=== PATIENT | female | born 1945 | race Caucasian/White ===

== ENCOUNTER → 2017-01-19 | Outpatient (CLI) | payer OTHER ==
[2017-01-19 12:15] LABS: BASO % 0.9 %; BASO ABS # 0.08 K/uL (0-0.2); COMPLETE YES; EOS % 2.5 %; HEMATOCRIT 39.6 % (37-47); IG% 0.2 %; LYMPH % 34.4 %; LYMPH ABS # 2.91 K/uL (1.2-3.4); MEAN CELL VOLUME 87.6 fL (80-100); MEAN CORPUSCULAR HGB CONC 35.4 g/dl (32-36); MEAN PLATELET VOLUME 9.9 fL (7.4-10.4); MONO % 6.9 %; NEUT % 55.1 %; PLATELET COUNT 376 K/uL (130-400); RED BLOOD COUNT 4.52 M/uL (4.2-5.4); WHITE BLOOD COUNT 8.45 K/uL (4.8-10.8)
[2017-01-19 12:40] LABS: ALT/SGPT 27 U/L (12-78); BLOOD UREA NITROGEN 9 mg/dl (7-18); BUN/CREATININE RATIO 11.1 (10-20); CALCIUM 9.6 mg/dl (8.5-10.1); CARBON DIOXIDE 25 mmol/L (21-32); CHLORIDE 99 mmol/L (98-107); CHOLESTEROL 263 mg/dl (0-200); CREATININE 0.81 mg/dl (0.60-1.20); GLUCOSE 90 mg/dl (70-99); POTASSIUM 3.9 mmol/L (3.5-5.1); SODIUM 134 mmol/L (136-145); TRIGLYCERIDES 184 mg/dl (0-150); VERY LOW DENSITY LIPOPROT CALC 37 mg/dl
[2017-01-19 12:43] LABS: ALB/GLOB RATIO 1.1 (0.9-2); ALKALINE PHOSPHATASE 51 U/L (45-117); AST/SGOT 25 U/L (15-37); CHOLESTEROL/HDL RATIO 3.2; HDL CHOLESTEROL 83 mg/dl; LDL CHOLESTEROL CALCULATED 143 mg/dl
== END | disposition home or self-care (01) ==
LOC: C.LABPVFM 08:21
PROVIDERS: ATTEND Family Medicine
DX: R19.7 Diarrhea, unspecified (principal); E78.5 Hyperlipidemia, unspecified

== ENCOUNTER → 2017-03-29 | Outpatient (CLI) | payer OTHER ==
--- NOTE | 2017-03-29 13:34 | DIAGNOSTIC IMAGING REPORT ---
R HIP UNILATERAL 2 VIEWS HISTORY: 72 years-old Female Hip strain, initial encounterright acute right hip pain COMPARISON: None available TECHNIQUE: 2 views of right hip FINDINGS: There is moderate right hip osteoarthritis. Imaged right pelvic ring appears intact. No acute fracture or dislocation identified. Vascular calcifications are seen. Calcifications right hemipelvis measuring up to 2.1 cm suggests calcified fibroid. IMPRESSION: Moderate right hip osteoarthritis without acute fracture or dislocation. The above report was generated using voice recognition software. It may contain grammatical, syntax or spelling errors. Electronically signed by: Daniel Sinclair M.D. 03/29/2017 1:33 PM Dictated Date/Time: 03/29/2017 1:30 PM
== END | disposition home or self-care (01) ==
LOC: C.RADPV 12:58
PROVIDERS: ATTEND Family Medicine
DX: S76.019A Strain of muscle, fascia and tendon of unspecified hip, initial encounter (principal); X58.XXXA Exposure to other specified factors, initial encounter; M16.11 Unilateral primary osteoarthritis, right hip

== ENCOUNTER → 2017-08-03 | Outpatient (CLI) | payer OTHER ==
[2017-08-03 14:31] LABS: ALBUMIN 3.9 gm/dl (3.4-5.0); ALT/SGPT 30 U/L (12-78); BLOOD UREA NITROGEN 12 mg/dl (7-18); CALCIUM 9.7 mg/dl (8.5-10.1); CARBON DIOXIDE 27 mmol/L (21-32); CREATININE 0.91 mg/dl (0.60-1.20); GLUCOSE 88 mg/dl (70-99); SODIUM 132 mmol/L (136-145)
[2017-08-03 14:33] LABS: ALKALINE PHOSPHATASE 57 U/L (45-117); AST/SGOT 29 U/L (15-37); CHOLESTEROL 201 mg/dl (0-200); LDL CHOLESTEROL CALCULATED 102 mg/dl; TOTAL PROTEIN 7.8 gm/dl (6.4-8.2)
== END | disposition home or self-care (01) ==
LOC: C.LABPVFM 08:28
PROVIDERS: ATTEND Family Medicine
DX: E78.00 Pure hypercholesterolemia, unspecified (principal); F41.9 Anxiety disorder, unspecified

== ENCOUNTER 2019-11-10 05:19 | Inpatient (IN) ==
--- NOTE | 2019-10-06 14:29 | PAT Medication Instructions ---
Medication Instructions Date of Service October 06, 2019 Home Medications atorvastatin 10 mg tablet 10 mg PO DAILY kamala (Zingiber officinalis) 250 mg capsule 250 mg PO DAILY multivitamin,pz-damb-sxlgxeke 1 tab PO DAILY Vitamin C 1 tab PO DAILY Vitamin D3 1 dose PO DAILY naproxen sodium [Aleve] 220 mg PO BID PRN omega 0-qrp-ety-fish oil [Fish Oil] 1 cap PO DAILY ASK your surgeon for instructions naproxen sodium [Aleve] 220 mg PO BID PRN STOP taking 2 weeks before surgery kamala (Zingiber officinalis) 250 mg capsule 250 mg PO DAILY omega 1-kzk-enx-fish oil [Fish Oil] 1 cap PO DAILY DO NOT take the morning of surgery multivitamin,rl-alls-olyzbmus 1 tab PO DAILY Vitamin C 1 tab PO DAILY Vitamin D3 1 dose PO DAILY Take morning of surgery With a small sip of water, OTHERWISE NOTHING TO EAT OR DRINK AFTER MIDNIGHT: atorvastatin 10 mg tablet 10 mg PO DAILY Other Notes If you have any questions please call us at [phone] or [phone] or [phone] or [phone]
--- NOTE | 2019-10-09 13:22 | Anesthesiology Consultation ---
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 COVID Status: As of 10/08 PAT assessment, patient denies travel to endemic area, known exposure/sick contacts, or symptoms of COVID19. Preoperative COVID19 testing to be completed prior to surgery. Chart Review Chart Review: Acceptable Risk for Surgery and Patient seen in Pre Admission Testing Teaching & Discussion Instructed NPO after midnight before surgery, except medications with 15 cc of water. Medication instructions provided according to the [facility] guidelines. History Surgery Operation Date: 11/10/19 10:00 Proposed Procedures p Right Anterior Total Hip Arthroplasty - Andreas Silva, Height/Weight Height: 5 ft 5 in Weight: 61.9 kg Allergies Allergy/AdvReac Type Severity Reaction Status Date / Time No Known Allergies Allergy Unverified 10/02/19 09:46 Medications Home Medications Medication Instructions Recorded Confirmed Last Taken atorvastatin 10 mg tablet 10 mg PO DAILY 05/15/19 10/02/19 Unknown kamala (Zingiber officinalis) 250 250 mg PO DAILY 05/15/19 10/02/19 Unknown mg capsule multivitamin,ys-qfih-dkwlokdr 1 tab PO DAILY 05/15/19 10/02/19 Unknown Vitamin C 1 tab PO DAILY 10/02/19 10/02/19 Unknown Vitamin D3 1 dose PO DAILY 10/02/19 10/02/19 Unknown naproxen sodium [Aleve] 220 mg PO BID PRN 10/02/19 10/02/19 Unknown omega 1-xok-bzw-fish oil [Fish Oil] 1 cap PO DAILY 10/02/19 10/02/19 Unknown Past Medical History Medical History (Updated 10/10/19 @ 08:53 by Kenneth Byrd) COPD (chronic obstructive pulmonary disease) Emphysematous change noted on pre-op CXR Hyperlipidemia Osteoarthritis Spinal stenosis Exercise / Class Metabolic Activity II 4-5 Yardwork/Stairs/Walk up hill Past Family History Family History Other No family history of adverse response to anesthesia Past Surgical History Surgical History History of appendectomy History of colonoscopy History of tonsillectomy Past Anesthesia History No Hx of Anesthesia Complications and No Family Hx of Anesthesia Complications History of PONV No Hx of PONV and No Hx of Motion Sickness Social History Smoking Status: Former smoker Do You Dip or Chew Tobacco: No Smoking End Date: quit 17 years ago Hx Alcohol Use: No Hx Substance Use: No substance use type: does not use Review of Systems Pt denies any recent chest pain, shortness of breath, palpitations, cough, fever or URI. Physical Exam Vital Signs BP: 183/83 (pt is very anxious today, PCP has been monitoring and considering antihypertensives, having patient monitor at home) P: 86bpm SPO2: 97% RA T: 98.4 F R: 16 ENMT Mouth: + dental restorations (few crowns on molars); no chipped teeth and no loose teeth Thyromental Distance: > or= 3.5 Finger Breadths (3.5) Mallampati Class: II Neck normal visual inspection; neck extension not limited Respiratory normal respiratory effort Auscultation: lungs clear to auscultation bilaterally Cardiovascular Rate/Rhythm: regular rate and regular rhythm Heart Sounds: no murmur Extremities: no edema Testing Laboratory Results 10/09/19 13:37 10/09/19 13:37 PT 10.9 Seconds (9.0-12.0) 10/09/19 13:37 INR 1.0 (0.9-1.1) 10/09/19 13:37 APTT 26.2 Seconds (21.0-31.0) 10/09/19 13:37 Blood Type A Positive 10/09/19 13:37 Antibody Screen NEGATIVE 10/09/19 13:37 Electrocardiogram Date: 10/09/19 Findings: + NSR @ (75bpm) Chest X-Ray Date: 10/09/19 Emphysematous change with no active disease in the chest.
--- NOTE | 2019-10-09 14:02 | XRay Report ---
TWO VIEW CHEST CLINICAL HISTORY: Preoperative examination. FINDINGS: PA and lateral chest radiographs are obtained. No prior studies are available for compariso n at the time of dictation. The heart is top normal for projection noting atherosclerotic calcificati on of the thoracic aorta. The lungs are hyperinflated. Emphysematous change is noted. Foci of scarrin g/atelectasis are present throughout both lungs. No airspace consolidation or pleural effusion is maylin ntified. There is no pneumothorax. The skeletal structures are osteopenic. The bony thorax appears in tact. IMPRESSION: Emphysematous change with no active disease in the chest. ACT 112: Negative or not required by law. Electronically signed by: Alen Hopkins M.D. 10/09/2019 2:01 PM
--- NOTE | 2019-10-09 15:29 | Electrocardiogram Report ---
Test Reason : Blood Pressure : / mmHG Vent. Rate : 075 BPM Atrial Rate : 075 BPM P-R Int : 164 ms QRS Dur : 082 ms QT Int : 386 ms P-R-T Axes : 080 081 059 degrees QTc Int : 431 ms Normal sinus rhythm Normal ECG No previous ECGs available Confirmed by Tanner Sun ([id number]) on 10/09/2019 3:29:37 PM Referred By: Andreas Silva Confirmed By:Brad Sun
[2019-10-09 15:42] LABS: Basophils # (auto) 0.06 K/uL (0-0.2); Basophils % (auto) 0.6 %; Hematocrit (blood only) 37.9 % (37-47); Hemoglobin 12.9 g/dL (12.0-16.0); Immature Granulocytes # (auto) 0.02 K/uL (0.00-0.02); Immature Granulocytes % (auto) 0.2 %; Lymphocytes # (auto) 2.53 K/uL (1.2-3.4); Lymphocytes % (auto) 24.6 %; Mean Corpuscular Hemoglobin 30.1 pg (25-34); Mean Corpuscular Volume 88.3 fL (80-100); Mean Platelet Volume 10.1 fL (7.4-10.4); Monocytes # (auto) 0.56 K/uL (0.11-0.59); Monocytes % (auto) 5.4 %; Neutrophils # (auto) 7.03 K/uL (1.4-6.5); Neutrophils % (auto) 68.2 %; Platelet Count 381 K/uL (130-400); Red Blood Count 4.29 M/uL (4.2-5.4)
[2019-10-09 15:50] LABS: BUN Creatinine Ratio 14.9 (10-20); Est GFR (African American) 67.9; Est GFR (Non-African American) 58.6; Potassium 4.7 mmol/L (3.5-5.1)
[2019-10-09 15:55] LABS: Partial Thromboplastin Ratio 0.9; Partial Thromboplastin Time 26.2 Seconds (21.0-31.0); Prothrombin Time 10.9 Seconds (9.0-12.0)
--- NOTE | 2019-11-09 06:51 | History & Physical Report ---
Date of Service November 09, 2019 Assessment & Plan (1) Osteoarthritis of right hip: We will proceed with a right anterior total of arthroplasty. Postoperatively she will be placed on aspirin for DVT prophylaxis and kept overnight in the hospital for postoperative medical management. She plans to use [employer] upon discharge. Rebecca is a low risk for joint replacement surgery without any major comorbidities. Present on Admission?: Yes History of Present Illness Chief Complaint: Primary osteoarthritis of the right hip Primary Care Provider: Sabiha Burnette DO Rebecca is a pleasant 74-year-old female who is been dealing with chronic increasing right hip and groin pain. X-rays and clinical examination have been diagnostic for advanced osteoarthritis of the right hip. After failing conservative treatment, she has elected to proceed with a right anterior total hip arthroplasty. Allergies Allergy/AdvReac Type Severity Reaction Status Date / Time No Known Allergies Allergy Unverified 10/02/19 09:46 Home Medications Home Medications Medication Instructions Recorded Confirmed Type atorvastatin 10 mg tablet 10 mg PO DAILY 05/15/19 10/10/19 History kamala (Zingiber officinalis) 250 250 mg PO DAILY 05/15/19 10/10/19 History mg capsule multivitamin,lx-gzpc-dokqjoya 1 tab PO DAILY 05/15/19 10/10/19 History Vitamin C 1 tab PO DAILY 10/02/19 10/10/19 History Vitamin D3 1 dose PO DAILY 10/02/19 10/10/19 History naproxen sodium [Aleve] 220 mg PO BID PRN 10/02/19 10/10/19 History omega 6-kfn-kyk-fish oil [Fish Oil] 1 cap PO DAILY 10/02/19 10/10/19 History Past Med/Surg History Medical History COPD (chronic obstructive pulmonary disease) Emphysematous change noted on pre-op CXR Hyperlipidemia Osteoarthritis Spinal stenosis Surgical History History of appendectomy History of colonoscopy History of tonsillectomy Family History Other No family history of adverse response to anesthesia Social History Preferred Language: Guatemalan Communication Ability: Effective 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 Beliefs That Will Affect Care: None Current Living Situation: Alone Feels Safe at Home: Yes Smoking Status: Never smoker Second Hand Exposure: Yes ; Hx Alcohol Use: No Hx Substance Use: No Review of Systems Review of Systems: All systems reviewed & are unremarkable except as noted in HPI & below Physical Exam Constitutional: WD/WN, vitals as above Eyes: PERRL, conjunctivae normal, anicteric sclerae ENMT: external ear and nose normal, oropharynx normal Neck: trachea midline, no thyromegaly Respiratory: normal respiratory effort Cardiovascular: RRR, no murmur, no edema Gastrointestinal (Abdomen): normal bowel sounds, soft, nontender, no hepatosplenomegaly Musculoskeletal: Physical examination of the right hip reveals decreased range of motion with flexion, internal and external rotation. There is significant groin pain with forced internal rotation of the hip his leg lengths are essentially equal. Psychiatric: A+Ox3, euthymic affect Results & Data Results & Data ([facility]) Diagnostic Findings Radiographs of the right hip and pelvis demonstrate advanced osteoarthritis with joint space narrowing osteophyte formation and xkna-to-oygc articulation. PG Care Time/CCT Total # of Minutes Spent Total Time Spent with Patient: Total time spent is greater than 50% in coordination of care (as documented) at patient's floor/unit and/or counseling patient: Coding Level of Care Code None Diagnoses Osteoarthritis of right hip M16.11
[2019-11-10] MEDS ORDERED: LR 60ML/HR IV SCH (06:00)
[2019-11-10] MEDS ORDERED: TRANEXAMIC ACID 1,000 MG **IV Pre-op IV SCH (06:00)
[2019-11-10] MEDS ORDERED: TRANEXAMIC ACID 1,000 MG **IV Intra-op IV SCH (06:00)
[2019-11-10] MEDS ORDERED: ACETAMINOPHEN 500 MG TAB PO SCH (06:00)
[2019-11-10] MEDS ORDERED: CEFAZOLIN 1000MG 1,000 MG/7.5 ML SYR IV SCH (06:00)
[2019-11-10] MEDS ORDERED: ROPIVACAINE 0.5% HCL/PF 150 MG, BUPIVACAINE 0.5% MPF 30 ML, EPINEPHrine 30MG/30ML (OR U... INSTIL SCH (06:00)
[2019-11-10] MEDS ORDERED: GABAPENTIN 300 MG CAP PO SCH (06:00)
[2019-11-10] MEDS ORDERED: FAMOTIDINE 20 MG TAB PO SCH (06:00)
[2019-11-10] MEDS ORDERED: LR 500ML BOLUS, THEN 15ML/HR IV SCH (06:00)
[2019-11-10] MEDS ORDERED: dexAMETHasone 4 MG TAB PO SCH (06:00)
[2019-11-10] MEDS ORDERED: BUPIVACAINE 0.5 % 5 MG/1 ML PF 10ML VIAL ONE (06:29)
[2019-11-10] MEDS ORDERED: MIDAZOLAM HCL 1 MG/ML 2ML VIAL ONE ×2 (06:40→06:41)
[2019-11-10] MEDS ORDERED: PROPOFOL IV EMULSION 10 MG/ML 20 ML VIAL IV ONE (06:40)
[2019-11-10] MEDS ORDERED: LIDOCAINE HCL 2% 2 ML VIAL/AMP(20MG/ML) INFIL ONE (06:40)
[2019-11-10] MEDS ORDERED: fentaNYL citrate 100 MCG/2 ML VIAL ONE ×2 (06:40→07:33)
--- NOTE | 2019-11-10 06:45 | History & Physical Bridge Note ---
Date of Service November 10, 2019 History & Physical Bridge Note I have examined the patient, reviewed the History & Physical and in the interval since the performance of the History & Physical I have noted the following changes of clinical significance: no changes noted
[2019-11-10] MEDS ORDERED: ORTHO JOINT ANESTHETIC ONE (06:54)
[2019-11-10] MEDS ORDERED: fentaNYL citrate 100 MCG/2 ML VIAL IV PRN (07:00)
[2019-11-10] MEDS ORDERED: ONDANSETRON INJ 2 MG/ML 2 ML VIAL IV PRN ×2 (07:00→10:02)
[2019-11-10] MEDS ORDERED: ATROPINE SULFATE 0.1 MG/ML 10ML SYR IV PRN (07:00)
[2019-11-10] MEDS ORDERED: HYDROmorphone INJ 1 MG/ML SYRINGE IV PRN (07:00)
[2019-11-10] MEDS ORDERED: ePHEDrine sulfate 50 MG/ML AMP IV PRN (07:00)
[2019-11-10] MEDS ORDERED: ePHEDrine sulfate 50 MG/ML SYR ONE (07:28)
[2019-11-10] MEDS ORDERED: GLYCOPYRROLATE 0.2 MG/ML VIAL ONE ×2 (07:28→08:16)
[2019-11-10] MEDS ORDERED: ROCURONIUM BROMIDE 10 MG/ML 5 ML VIAL IV ONE (07:28)
[2019-11-10] MEDS ORDERED: ONDANSETRON INJ 2 MG/ML 2 ML VIAL ONE (07:28)
[2019-11-10] MEDS ORDERED: NEOSTIGMINE METHYLSULFATE 5 MG/5 ML SYR ONE (07:28)
--- NOTE | 2019-11-10 08:29 | Operative Report ---
PG Post Operative Report Pre & Post Diagnosis Operation Date: 11/10/19 07:00 Pre-Op Diagnosis: Right Hip Degenerative Joint Disease Post-Op Diagnosis: Right Hip Degenerative Joint Disease I identified the patient and participated in the time-out.: Yes Procedure Operation Date: 11/10/19 07:00 Actual Procedures p Right Anterior Total Hip Arthroplasty(Right) - Andreas Silva DO Surgeon Andreas Silva DO Retail Merchandiser Andreas Anguiano PAC Estimated Blood Loss 200 Findings Consistent with Post-Op Diagnosis Specimens Right femoral head Complications none Disposition Disposition: Recovery Room Indications Rebecca is a pleasant 74-year-old female who is been dealing with chronic increasing right hip and groin pain. X-rays and clinical examination have been diagnostic for advanced osteoarthritis of the right hip. After failing conservative treatment, she has elected to proceed with a right anterior total hip arthroplasty. Description of Procedure Implants used I used a Biomet Taperloc total hip arthroplasty system with a size 8 high offset micro Taperloc stem, a 48 mm G7 cup with a 25mm screw, an E1 polyethylene liner, a 32 mm ceramic head with a -3 neck. Rebecca arrived at the hospital for the above procedure. She was seen in the preoperative holding area and the operative extremity was identified and signed. She was given a spinal anesthetic, a preoperative antibiotic, and TXA. She was then taken back to the operating room and laid on the table in the supine position. She was given basic sedation. The operative leg was secured to a Puristst leg positioner. The hip was then prepped and draped in sterile fashion. A timeout was done and the patient and the operative extremity was properly identified. An anterior approach was used. Dissection was taken down through the fascia and the tensor muscle belly was retracted laterally and the rectus was retracted medially. The circumflex vessels were identified and ligated. The capsule was then incised and tagged for later repair. The femoral neck was then cut and the femoral head was removed. The acetabulum was exposed. Time was spent doing a complete circumferential labral release. Sequential reaming of the acetabulum up to a size 47 reamer was done. Final reamings were done under fluoroscopy to ensure appropriate version. A Biomet 48 mm G7 cup was then impacted into place. A single 25 mm screw was placed. The E1 polyethylene liner was then snapped into place. Surrounding soft tissues were then injected with 100 cc of an orthopedic pain control cocktail. The proximal femur was then exposed. Sequential broaching up to a size 8 broach was done. Off that broach a size 32 head with a -3 neck was trialed. The hip was reduced and fluoroscopic images showed anatomic alignment of the implants in acceptable length. The broach was removed. The final size 8 high offset micro Taperloc stem was then impacted into place. A ceramic 32 mm head with a -3 neck was then impacted onto the stem and the hip was reduced. Final fluoroscopic images showed anatomic alignment of the hip. The capsule was then closed with #1 Vicryl suture. A dilute betadyne lavage was then done for 3 minutes. The joint was then irrigated with normal saline solution. The fascia was closed with #1 PDS suture. Skin was closed with 2-0 Vicryl, peace, and a Pratibha VAC dressing. She was then transferred to a hospital bed and taken to the post anesthesia care unit in stable condition. She tolerated the procedure well. Andreas Anguiano PA-C, was present for the entire procedure. He was critical for patient positioning, prepping, draping, retraction exposure, wound closure and application of sterile dressing. I attest to the content of the Intraoperative Record and any orders documented therein. Any exceptions are noted below.
--- NOTE | 2019-11-10 09:23 | XRay Report ---
AP PELVIS, CROSSTABLE LATERAL RIGHT HIP History: Right total hip arthroplasty. Degenerative arthritis. Postop. FINDINGS: The patient is status post a right total hip arthroplasty. The hardware is intact. No fract ure or dislocation. Skin peace are in place. IMPRESSION: Right total hip arthroplasty. No evidence for hardware complication ACT 112: Negative or not required by law. Electronically signed by: Quique Geller M.D. 11/10/2019 9:22 AM
--- NOTE | 2019-11-10 09:28 | Fluoroscopy Report ---
FL hip RT 1V CLINICAL HISTORY: RT ANTERIOR TOTAL COMPARISON STUDY: 11/10/2018 FLUOROSCOPY TIME: 25 seconds. NUMBER OF FLUOROSCOPIC IMAGES: 2 FINDINGS: 2 intraoperative fluoroscopic spot images were acquired during a total right hip arthroplas ty. The second image demonstrates the acetabular femoral component which appear well seated. There is no dislocation. IMPRESSION: Intraoperative fluoroscopic spot images obtained during a total right hip arthroplasty ACT 112: Negative or not required by law. Electronically signed by: Joe Tavera M.D. 11/10/2019 9:27 AM
--- NOTE | 2019-11-10 09:39 | Anesthesiology Progress Note ---
Date of Service November 10, 2019 Anesthesia Post Procedure Vital Signs Vital Signs: Temp Pulse Pulse Resp BP Pulse Ox 11/10/19 09:30 64 20 159/80 H 99 11/10/19 09:25 36.7 C 68 13 166/83 H 99 11/10/19 09:15 65 19 155/80 H 99 11/10/19 09:05 36.7 C 68 17 144/73 H 99 11/10/19 08:55 67 15 138/72 100 11/10/19 08:48 37.2 C 72 12 139/68 100 11/10/19 05:39 36.6 C 63 18 216/94 H 97 Pain Intensity Right Hip: Pain Intensity: 0 Transfer of Care Handoff Completed per policy Notes Mental Status: alert / awake / arousable and participated in evaluation Patient Amnestic to Procedure: Yes Nausea / Vomiting: adequately controlled Pain: adequately controlled Airway Patency, RR, SpO2: stable & adequate BP & HR: stable & adequate Hydration State: stable & adequate Anesthetic Complications: no major complications apparent and Pt Satisfied with anesthetic care
[2019-11-10] MEDS ORDERED: bisacodyL 10 MG SUPP PR PRN (10:02)
[2019-11-10] MEDS ORDERED: METOCLOPRAMIDE HCL INJ 5 MG/ML 2 ML VIAL IV PRN (10:02)
[2019-11-10] MEDS ORDERED: NALOXONE HCL 0.4 MG/1 ML VIAL/CARP IV PRN (10:02)
[2019-11-10] MEDS ORDERED: MAGNESIUM HYDROXIDE SUSP 30 ML UDC PO PRN (10:02)
[2019-11-10] MEDS ORDERED: HYDROmorphone INJ 0.5 MG/0.5 ML SYR IV PRN (10:02)
[2019-11-10] MEDS ORDERED: OXYCODONE HCL IR 5 MG TAB (IMMEDIATE RELEASE) PO PRN (10:02)
[2019-11-10] MEDS: ATORVASTATIN 10 MG TAB PO SCH (10:59)
[2019-11-10] MEDS: MULTIVITAMIN TAB PO SCH (10:59)
[2019-11-10] MEDS: ASPIRIN 81 MG ECTAB PO SCH ×2 (10:59→21:41)
[2019-11-10] MEDS: KETOROLAC TROMETHAMINE 15 MG/ML VIAL IV SCH ×3 (10:59→22:58)
--- NOTE | 2019-11-10 12:55 | Hospitalist Consultation ---
Date of Consultation November 10, 2019 Assessment & Plan (1) Osteoarthritis of right hip: s/p right total hip arthroplasty - Pain control per primary service - DVT prophylaxis per primary service - PT/OT per primary service - Encourage incentive spirometry - reviewed with patient (2) Essential hypertension: Suspect current BP elevation related to missed dose of Atenolol and recent surgery - Add low-dose amlodipine 2.5 mg daily for now, once BP improves consider d/c - Resume outpatient atenolol with first dose now (3) Hyperlipidemia: - Resume outpatient atorvastatin (4) Insomnia: - Resume trazodone although pt reports ineffective for more than 2 hours. Will address with PCP after discharge (5) Anxiety: - Resume outpatient sertraline 25 mg daily. (6) Collagenous colitis: - Continue Questran which patient reports taking BID - baseline bowel pattern is 1-3x/day Patient seen and reviewed with collaborating physician, Dr. Dow. Plan of care discussed and as outlined above. Thank you for this consultation. We will continue to follow this patient with you. [facility] available [facility]/11 at [phone]. Please don't hesitate to call for questions. Angeles Lau PA-C Supervising Physician Co-Signing Physician Notes Patient is a 74-year-old female with history of collagenous colitis, hypertension, hyperlipidemia, anxiety disorder and other medical problems was seen and examined postop after having right total hip arthroplasty by Dr. Silva today. Patient is doing well postop. She denies any significant right hip pain. Also denies any chest pain, shortness of breath, dizziness, nausea, abdominal pain. On exam patient is elderly, thin, normocephalic atraumatic, lungs are clear to auscultation, S1-S2, no murmur, abdomen soft, nontender, no p edal edema, grossly no focal neurologic deficits, right hip surgical site in dressing. Patient is consulted for management of postop medical management after having right total hip arthroplasty. She was noted to have high blood pressure postoperatively. She admits to missing her atenolol dose. She denies any headache, change in vision, dizziness. Will restart atenolol and add low- dose amlodipine. Blood pressure elevation also likely contributed due to Decadron, stress due to surgery, pain and missing her medications. Will decrease IV fluids. Will monitor blood pressure closely and adjust medication as needed. Pain control, DVT prophylaxis, activity as per primary team. Monitor for postop anemia. Continue bowel regimen to prevent constipation. Continue incentive spirometry. I personally reviewed the record. Patient is interviewed and examined at bedside. Patient's care is coordinated with Mily Lau PA-C. Please refer to the documentation above for details of patient's presentation and for discussion of other issues. History of Present Illness Reason for Consultation: Elevated blood pressure Attending Physician: Andreas Silva DO History of Present Illness This is a 74 y/o female with a PMH of HTN, hyperlipidemia, collagenous colitis and anxiety who underwent right total hip arthroplasty earlier today due to right hip OA having failed conservative management. We have been consulted for post-operative medical management due to elevated blood pressure. Pt reports a history of hypertension, which is usually well-controlled on atenolol 25 mg daily although she did not take medication this morning. She does monitor her BP daily at home with systolic BPs usually 110-120 and HR 50s-60s. She also reports a history of anxiety, that is not well-controlled at present, and that has been exacerbated by the stress of today's surgery. She feels that this may be worsening her BP today, along with not taking her morning meds. Currently, she c/o only mild burning discomfort at the right hip incisions but otherwise reports that the right hip feels numb related to the ice pack she is using. Denies significant pain in any other joint. Denies chest pain, dyspnea, palpitations, dizziness, syncope. Only other complaint at present is dry mouth. Allergies Allergy/AdvReac Type Severity Reaction Status Date / Time No Known Allergies Allergy Verified 11/10/19 05:52 Home Medications Home Medications Medication Instructions Recorded Confirmed Type atorvastatin 10 mg tablet 10 mg PO DAILY 05/15/19 11/10/19 History kamala (Zingiber officinalis) 250 250 mg PO DAILY 05/15/19 10/10/19 History mg capsule multivitamin,[id number]-wedw-[id number] 1 tab PO DAILY 05/15/19 10/10/19 History Vitamin C 1 tab PO DAILY 10/02/19 10/10/19 History Vitamin D3 1 dose PO DAILY 10/02/19 11/10/19 History naproxen sodium [Aleve] 220 mg PO BID PRN 10/02/19 10/10/19 History omega 7-lgv-cai-fish oil [Fish Oil] 1 cap PO DAILY 10/02/19 10/10/19 History atenolol 25 mg PO DAILY 11/10/19 11/10/19 History cholestyramine (with sugar) 4 g PO BID 11/10/19 11/10/19 History sertraline 25 mg PO DAILY 11/10/19 11/10/19 History trazodone 100 mg PO HS 11/10/19 11/10/19 History Patient History Medical History (Updated 11/10/19 @ 13:34 by Mily Lau PA-C) Anxiety Collagenous colitis COPD (chronic obstructive pulmonary disease) Emphysematous change noted on pre-op CXR Essential hypertension Hyperlipidemia Insomnia Osteoarthritis Spinal stenosis Surgical History (Updated 11/10/19 @ 13:18 by Mily Lau PA-C) History of appendectomy History of colonoscopy History of tonsillectomy Status post right hip replacement Family History Other No family history of adverse response to anesthesia Social History (Updated 11/10/19 @ 12:50 by Mily Lau PA-C) Preferred Language: Austrian Communication Ability: Effective Admissions Rn Required: No Beliefs That Will Affect Care: None Current Living Situation: Alone Other Information That Helps Us Care for You: No Feels Safe at Home: Yes Safety Concerns: Feels Safe At This Time Smoking Status: Former smoker Tobacco Type: cigarettes ; Do You Dip or Chew Tobacco: No ; Smoking End Date: 2004 ; Number of Years Since Quit: 15 ; Second Hand Exposure: Yes ; Tobacco Cessation Education Requested by Patient: No Hx Alcohol Use: No Hx Substance Use: No Review of Systems Review of Systems: All systems reviewed & are unremarkable except as noted in HPI & below Constitutional: no fever, no chills and no sweats Eyes: no diplopia and no worsening vision Ear, Nose, Mouth, Throat: + dry mouth Respiratory: no cough, no dyspnea and no wheezing Cardiovascular: no chest pain, no palpitations, no lightheadedness and no edema Gastrointestinal: no nausea, no vomiting, no change in bowel habits, no constipation and no diarrhea/loose stools Genitourinary: no dysuria and no urinary frequency Musculoskeletal: + joint pain (mild right hip incisional burning but denies significant pain); no back pain, no neck pain and no swelling Integumentary: no rash and no skin ulcer Neurologic: no tingling, no numbness, no dizziness, no syncope, no headache(s) and no confusion Psychiatric: + anxiety; no depression Physical Exam Constitutional: WD/WN, vitals as above Eyes: + anicteric sclerae; no conjunctival abnormality ENMT: Ears: no external ear abnormality Nose: no external nose abnormality Neck: trachea midline Respiratory: no respiratory distress and no labored breathing Auscultation: lungs clear to auscultation bilaterally; no rales, no rhonchi and no wheezes Cardiovascular: RRR, no murmur, no edema Vessels: dorsalis pedis pulses present Extremities: normal capillary refill; no calf tenderness and no pedal edema Gastrointestinal (Abdomen): Inspection/Auscultation: normal bowel sounds; abdomen not distended Percussion/Palpation: abdomen soft; abdomen nontender Musculoskeletal: Head/Neck/Chest: normocephalic, head atraumatic and neck supple Extremities: no cyanosis and no clubbing Skin: no rashes, warm and dry no jaundice Neurologic: moves all extremities; no focal motor deficits Psychiatric: A+Ox3, euthymic affect Results & Data Results & Data [facility]) Vital Signs (Past 12 Hours) Vital Signs Temp Pulse Pulse Resp BP Pulse Ox 11/10/19 11:56 67 18 160/86 H 100 11/10/19 10:52 71 16 192/79 H 99 11/10/19 10:05 36.5 C 65 16 157/71 H 96 11/10/19 09:48 37 C 62 16 167/79 H 96 11/10/19 09:30 64 20 159/80 H 99 11/10/19 09:25 36.7 C 68 13 166/83 H 99 11/10/19 09:15 65 19 155/80 H 99 11/10/19 09:05 36.7 C 68 17 144/73 H 99 11/10/19 08:55 67 15 138/72 100 11/10/19 08:48 37.2 C 72 12 139/68 100 11/10/19 05:39 36.6 C 63 18 216/94 H 97 Laboratory Results 10/09/19 10/09/19 10/09/19 13:37 13:37 13:37 WBC 10.30 RBC 4.29 Hgb 12.9 Hct 37.9 MCV 88.3 MCH 30.1 MCHC 34.0 RDW Std Deviation 42.0 RDW Coeff of Layla 13.0 Plt Count 381 MPV 10.1 Immature Gran % (Auto) 0.2 Neut % (Auto) 68.2 Lymph % (Auto) 24.6 Lawrence % (Auto) 5.4 Eos % (Auto) 1.0 Baso % (Auto) 0.6 Immature Gran # (Auto) 0.02 Neut # (Auto) 7.03 H Lymph # (Auto) 2.53 Lawrence # (Auto) 0.56 Eos # (Auto) 0.10 Baso # (Auto) 0.06 PT 10.9 INR 1.0 APTT 26.2 PTT Ratio 0.9 Sodium Potassium Chloride Carbon Dioxide Anion Gap BUN Creatinine Est Cr Clr Drug Dosing Est GFR ( Amer) Est GFR (Non-Af Amer) BUN/Creatinine Ratio Glucose Calcium Blood Type A Positive Antibody Screen NEGATIVE 10/09/19 13:37 WBC RBC Hgb Hct MCV MCH MCHC RDW Std Deviation RDW Coeff of Layla Plt Count MPV Immature Gran % (Auto) Neut % (Auto) Lymph % (Auto) Lawrence % (Auto) Eos % (Auto) Baso % (Auto) Immature Gran # (Auto) Neut # (Auto) Lymph # (Auto) Lawrence # (Auto) Eos # (Auto) Baso # (Auto) PT INR APTT PTT Ratio Sodium 136 Potassium 4.7 Chloride 102 Carbon Dioxide 25 Anion Gap 9.0 BUN 14 Creatinine 0.95 Est Cr Clr Drug Dosing 46.0 Est GFR ( Amer) 67.9 Est GFR (Non-Af Amer) 58.6 BUN/Creatinine Ratio 14.9 Glucose 92 Calcium 10.0 Blood Type Antibody Screen Diagnostic Findings Chest X-ray 10/09/19 - IMPRESSION: Emphysematous change with no active disease in the chest. Right Hip X-ray 11/10/19 - IMPRESSION: Right total hip arthroplasty. No evidence for hardware complication Medications Administered Aspirin (Ecotrin Ectab) 81 mg PO BID GERMAINE Stop: 12/10/19 11:59 Last Admin: 11/10/19 10:59 Dose: 81 mg Documented by: [id number] Atorvastatin Calcium (Lipitor) 10 mg PO DAILY GERMAINE Stop: 12/10/19 10:29 Last Admin: 11/10/19 10:59 Dose: 10 mg Documented by: [id number] Ketorolac Tromethamine (Toradol) 15 mg IV Q6H GERMAINE Stop: 11/12/19 05:01 Last Admin: 11/10/19 10:59 Dose: 15 mg Documented by: [id number] Multivitamins (Multivitamin Tab) 1 tab PO QAM GERMAINE Stop: 12/10/19 11:59 Last Admin: 11/10/19 10:59 Dose: 1 tab Documented by: [id number] Discontinued Medications Acetaminophen (Tylenol) 1,000 mg PO PREOP GERMAINE Stop: 11/10/19 18:00 Last Admin: 11/10/19 05:56 Dose: 1,000 mg Documented by: [id number] Dexamethasone (Decadron) 8 mg PO PREOP GERMAINE Stop: 11/10/19 18:00 Last Admin: 11/10/19 05:56 Dose: 8 mg Documented by: [id number] Famotidine (Pepcid) 20 mg PO PREOP GERMAINE Stop: 11/10/19 18:00 Last Admin: 11/10/19 05:56 Dose: 20 mg Documented by: [id number] Gabapentin (Neurontin) 300 mg PO PREOP GERMAINE Stop: 11/10/19 18:00 Last Admin: 11/10/19 05:57 Dose: 300 mg Documented by: [id number] Lactated Ringer's (Lr) 1,000 mls @ 15 mls/hr IV .Q24H GERMAINE Stop: 11/10/19 18:00 Last Admin: 11/10/19 05:57 Dose: Not Given Documented by: [id number] Lactated Ringer's (Lr) 1,000 mls @ 60 mls/hr IV .[id number] GERMAINE Stop: 11/10/19 22:39 Last Infusion: 11/10/19 06:56 Dose: 0 mls/hr Documented by: [id number] Admin: 11/10/19 05:56 Dose: 60 mls/hr Documented by: [id number] Cefazolin Sodium (Ancef 1000mg) 1,000 mg in 7.5 mls @ 2.5 mls/min IV PREOP GERMAINE; Protocol Stop: 11/10/19 18:00 Last Admin: 11/10/19 06:56 Dose: 2.5 mls/min Documented by: [id number] Ropivacaine 150 mg/Bupivacaine HCl 30 ml/Epinephrine HCl 0.15 mg/Ketorolac Tromethamine 30 mg/Dexamethasone 4 mg/ Ketamine HCl 10 mg/ Clonidine HCl 100 mcg/ Sodium Chloride 93.35 mls @ 0 mls/hr INSTIL PREOP GERMAINE Stop: 11/10/19 12:00 Last Admin: 11/10/19 08:19 Dose: 93.3 mls/hr Documented by: [id number] Tranexamic Acid (Tranexamic Acid / 0.7% Nacl) 1,000 mg in 100 mls @ 600 mls/hr IV TODAY@0600 [facility] Stop: 11/10/19 18:00 Last Infusion: 11/10/19 07:06 Dose: 0 mls/hr Documented by: [id number] Admin: 11/10/19 06:56 Dose: 600 mls/hr Documented by: [id number] Tranexamic Acid (Tranexamic Acid / 0.7% Nacl) 1,000 mg in 100 mls @ 600 mls/hr IV TODAY@0600 [facility] Stop: 11/10/19 18:00 Last Infusion: 11/10/19 10:05 Dose: 0 mls/hr Documented by: [id number] Admin: 11/10/19 08:15 Dose: 600 mls/hr Documented by: [id number] Miscellaneous (Ortho Joint Anesthetic) Confirm Administered Dose 1 ea .ROUTE .STK-MED ONE Stop: 11/10/19 06:55 Last Admin: 11/10/19 08:19 Dose: Not Given Documented by: [id number] (1) Insomnia Insomnia type: unspecified Qualified Code(s): G47.00 - Insomnia, unspecified (2) Osteoarthritis of right hip Osteoarthritis type: unspecified Qualified Code(s): M16.11 - Unilateral primary osteoarthritis, right hip (3) Hyperlipidemia Hyperlipidemia type: unspecified Qualified Code(s): E78.5 - Hyperlipidemia, unspecified
[2019-11-10] MEDS: ACETAMINOPHEN 500 MG TAB PO SCH ×2 (13:17→21:42)
[2019-11-10] MEDS: ATENOLOL 25 MG TABLET PO SCH (14:03)
[2019-11-10] MEDS: AMLODIPINE BESYLATE 5 MG TAB PO SCH (14:03)
[2019-11-10] MEDS: SODIUM CHLORIDE 0.9% 1000ML 1,000 ML IV SCH (14:04)
[2019-11-10] MEDS: CEFAZOLIN 2000MG 2,000 MG/15 ML SYR IV SCH ×2 (14:50→22:58)
[2019-11-10] MEDS ORDERED: SENNA 8.6 MG TAB PO SCH (21:00)
[2019-11-10] MEDS ORDERED: TRAZODONE HCL 100 MG TAB PO SCH (21:00)
[2019-11-10] MEDS: CHOLESTYRAMINE LIGHT 4 GM PKT PO SCH (21:38)
[2019-11-10] MEDS: DOCUSATE SODIUM 100 MG CAP PO SCH (21:41)
[2019-11-11] MEDS: SODIUM CHLORIDE 0.9% 1000ML 1,000 ML IV SCH (03:48)
[2019-11-11] MEDS: KETOROLAC TROMETHAMINE 15 MG/ML VIAL IV SCH (05:43)
[2019-11-11] MEDS: ACETAMINOPHEN 500 MG TAB PO SCH (05:43)
[2019-11-11 06:47] LABS: Basophils # (auto) 0.02 K/uL (0-0.2); Basophils % (auto) 0.2 %; Eosinophils # (auto) 0.03 K/uL (0-0.5); Eosinophils % (auto) 0.3 %; Hematocrit (blood only) 29.4 % (37-47); Hemoglobin 10.1 g/dL (12.0-16.0); Immature Granulocytes # (auto) 0.04 K/uL (0.00-0.02); Immature Granulocytes % (auto) 0.3 %; Lymphocytes # (auto) 1.91 K/uL (1.2-3.4); Lymphocytes % (auto) 16.5 %; Mean Corpuscular Hemoglobin 29.7 pg (25-34); Mean Corpuscular Hgb Conc 34.4 g/dL (32-36); Mean Corpuscular Volume 86.5 fL (80-100); Mean Platelet Volume 9.3 fL (7.4-10.4); Monocytes # (auto) 1.01 K/uL (0.11-0.59); Monocytes % (auto) 8.7 %; Neutrophils # (auto) 8.59 K/uL (1.4-6.5); Platelet Count 252 K/uL (130-400); RDW Standard Deviation 41.4 fL (36.4-46.3)
--- NOTE | 2019-11-11 06:56 | Orthopedic Progress Note ---
Date of Service November 11, 2019 Assessment & Plan (1) Status post right hip replacement: Overall she is doing fairly well. She is having much pain in the right hip. She will be seen by physical therapy this morning for ambulation and range of motion exercises. She is on aspirin for DVT prophylaxis. Postoperatively she was seen by the hospitalist for postoperative hypertension. This was due to her missing her antihypertensive medications the day of surgery. This is not a complication of the procedure. She can be discharged home later today. She will follow-up with orthopedics in 2 weeks. Present on Admission?: Yes Subjective Rebecca was seen and examined at bedside this morning. Overall she is doing very well. She is not having much pain in her hip. She has been up and ambulating to the bathroom. She has no complaints. Physical Exam Musculoskeletal: On physical examination of her right hip, the Silverlon dress ing is clean and dry. Her leg lengths are equal. She has active dorsiflexion and plantarflexion of her right ankle. Results & Data ([facility]) Vital Signs (Past 12 Hours) Vital Signs Temp Pulse Resp BP Pulse Ox 11/11/19 02:58 36.4 C L 70 14 164/80 H 99 11/10/19 23:37 36.8 C 67 18 180/84 H 97 11/10/19 19:45 36.8 C 58 L 16 157/74 H 99 Laboratory Results H & H 10/09/19 11/11/19 Range/Units 13:37 06:17 Hgb 12.9 10.1 L (12.0-16.0) g/dL Hct 37.9 29.4 L (37-47) % Coagulation 10/09/19 Range/Units 13:37 INR 1.0 (0.9-1.1) Diagnostic Findings Postoperative x-rays of the right hip show the prosthesis to be in anatomic alignment without any evidence of fracture, dislocation, or loosening. PG Care Time/CCT Total # of Minutes Spent Total Time Spent with Patient: Total time spent is greater than 50% in coordination of care (as documented) at patient's floor/unit and/or counseling patient: Coding Level of Care Code None Diagnoses Status post right hip replacement Z96.641
--- NOTE | 2019-11-11 06:58 | Discharge Summary ---
Date of Service November 11, 2019 Admission HPI Per Admitting Provider Rebecca is a pleasant 74-year-old female who is been dealing with chronic increasing right hip and groin pain. X-rays and clinical examination have been diagnostic for advanced osteoarthritis of the right hip. After failing conservative treatment, she has elected to proceed with a right anterior total hip arthroplasty. Principal Diagnosis Right hip replacement Discharge Data Allergies Allergy/AdvReac Type Severity Reaction Status Date / Time No Known Allergies Allergy Verified 11/10/19 05:52 Consultations 11/10/19 11:52 Consult Hospitalist Routine 11/11/19 08:00 Consult Case Management - Discharge Planning Routine Procedures Performed Operation Date: 11/10/19 07:00 Actual Procedures p Right Anterior Total Hip Arthroplasty(Right) - Andreas Silva DO Ordered Studies 11/10/19 07:00 FL fluoroscopy <1hr Routine FL hip RT 1V Routine Hospital Course (1) Status post right hip replacement: On November 10, [address] [facility] and underwent a right anterior total hip arthroplasty without complication. She had a general anesthesia. Postoperatively she was started on aspirin for DVT prophylaxis and transferred to the general orthopedic floors. She was having some hypertension postoperatively so the hospitalist was consulted by anesthesia. She was diagnosed with some essential hypertension secondary to missing her blood pressure medications the day of surgery. She was otherwise asymptomatic. Her hospital course was uneventful. On postop day #1 her H&H was stable and her pain was well controlled. She was able to participate well with physical therapy doing ambulation and range of motion exercises. She was then discharged home. She will follow-up with orthopedics in 2 weeks. Total Time Total Time Spent Total Time Spent (In Minutes): 20 Discharge Plan Discharge Items Patient Disposition: Home - Home Health Services Reason For Visit: Left Hip Degenerative Joint Disease Discharge Diagnosis: Left hip replacement Activity: As commented below Non-emergency contact: Surgeon Call non-emergency contact if: your wound has increased redness and your wound has increased drainage Follow-up/Referrals: Sabiha Burnette DO [Primary Care Provider] - Diet: Regular Addtl Attending Provider Instructions: Activity and Therapy Recommendations: * If you are using [facility] then therapy will be provided at your home until they feel you have accomplished all of your goals. * If you are using [facility] then Physical Therapy will be provided until they feel you are ready to start Outpatient Physical Therapy. * If you are not using home therapy then Outpatient Physical Therapy should start about 3-5 days from your day of surgery. Therapy will last about 6-10 weeks * You were shown a series of exercises in the hospital. Do these exercises three times each day including the exercises you were shown in physical therapy. * Get up and walk several times each day.~ For the first four weeks, try not to stand or walk for more than one hour at a time. If you do stand or walk for more than one hour, you will not hurt anything, but your leg will likely swell.~~ * As you feel comfortable, you may change from the walker or crutches to a cane and~then to independent walking. Medications: * Narcotic You will likely be sent home from the hospital with a prescription for the narcotic pain medication that worked best throughout your stay. * Aspirin Most patients will be required to take Aspirin 81mg twice a day for 6 weeks after surgery. This is obtained [id number] and a prescription is not necessary. * Other medications may be prescribed for specific circumstances. If you have any questions, please call the office at . * Resume previous home medications unless otherwise instructed TEDs/Elastic Stockings: The white elastic stockings help limit swelling and prevent blood clots from forming in your legs. The more you wear them, the more they work. Wear them for six weeks. Dressing Care: Leave the Silverlon dressing on for 7 days. After 7 days you may remove the dressing. Then, you may leave the peace open to air or cover them with a dry dressing so they do not rub on your pants. The peace will be removed at your 2 week follow-up appointment. Showering: You may shower with the Silverlon dressing in place. After 7 days remove the dressing. After the dressing is removed you may shower normally with the peace exposed. Let soapy water run over the peace and pat them dry. Things To Watch For: * Drainage from the incision site that occurs more than one week after your surgery. * Increased redness at the incision site. * Fever above 102 degrees Fahrenheit. * Unusual chest pain or shortness of breath. * Call [facility] at with any of the above problems Follow-Up Visit: Follow-up with Dr. Silva's PA (Andreas Anguiano) 2-3 weeks after your day of surgery. He will remove your peace and answer any questions. If you have any additional questions or concerns, Dr Silva is usually in the office at the same time and will be available An appointment was probably scheduled when you signed-up for surgery in the office. If you have any questions call Office Instructions: More detailed instructions as well as Frequently Asked Questions were provided in a folder by our office when you signed-up for surgery. Please review these instructions when you get home. If you have any further questions or concerns, please feel free to call the office at [phone] Pending Studies at Discharge: No Stand-Alone Forms: [facility], Sm[facility] Cess[facility] Medications and DC Order Prescriptions: New oxycodone 5 mg Tablet 5 mg PO Q4H PRN (Reason: pain) Qty: 30 RF: 0 aspirin 81 mg Tablet,Delayed Release (Dr/Ec) 81 mg PO BID 42 Days Qty: 84 RF: 0 Continued atorvastatin 10 mg tablet 10 mg PO DAILY RF: 0 Complete Multivitamin Tablet 1 tab PO DAILY RF: 0 kamala (Zingiber officinalis) 250 mg capsule 250 mg PO DAILY RF: 0 naproxen sodium [Aleve] 220 mg Tablet 220 mg PO BID PRN (Reason: Pain) RF: 0 omega 1-dhw-tqt-fish oil [Fish Oil] 1,000 mg (120 mg-180 mg) Capsule 1 cap PO DAILY RF: 0 Vitamin C 1 tab PO DAILY RF: 0 Vitamin D3 1 dose PO DAILY RF: 0 atenolol 25 mg tablet 25 mg PO DAILY RF: 0 trazodone 100 mg tablet 100 mg PO HS RF: 0 sertraline 25 mg tablet 25 mg PO DAILY RF: 0 cholestyramine (with sugar) 4 gram powder in packet 4 g PO BID RF: 0 Discharge Orders: Discharge Order (Routine); Ordered 11/11/19 Ordered By: Andreas Silva Admission Data Admit Date/Time: 11/10/19 08:46 Attending Provider: Andreas Silva Admit Provider: Andreas Silva Primary Care Provider: Sabiha Burnette Other Providers: Latoya Mendez ; Onesimo Narvaez ; Wilmer Park ; Mily Lau ; Rayma Morrell ; Kaylyn Thompson ; Елена Braga ; Preston Hickey ; Jim Ramon ; Kenneth Esposito ; Tamela Whelan ; Corrine Crocker ; Federica Kothari ; Lonnie Dow ; Tung Sepulveda ; Renetta Palomo ; John Espinal ; Yolanda Dennis ; Tung Perry ; Melanie Prince ; Gayathri Alexander ; Bia Mann ; Gabbi Moran I. ; Eddie Amaya ; Camille Butt Coding Level of Care Code D/C Day Management <30 mins Diagnoses Status post right hip replacement Z96.641
[2019-11-11 07:26] LABS: BUN Creatinine Ratio 14.6 (10-20); Calcium 8.6 mg/dl (8.5-10.1); Creatinine Clr Calc Pharmacy 40.8 ml/min; Est GFR (African American) 60.2; Est GFR (Non-African American) 51.9
[2019-11-11] MEDS ORDERED: dexAMETHasone 4 MG TAB PO SCH (08:00)
[2019-11-11] MEDS ORDERED: SERTRALINE HCL 50 MG TABLET PO SCH (09:00)
[2019-11-11] MEDS: CHOLESTYRAMINE LIGHT 4 GM PKT PO SCH (09:25)
[2019-11-11] MEDS: DOCUSATE SODIUM 100 MG CAP PO SCH (09:26)
[2019-11-11] MEDS: ASPIRIN 81 MG ECTAB PO SCH (09:26)
[2019-11-11] MEDS: ATENOLOL 25 MG TABLET PO SCH (09:26)
[2019-11-11] MEDS: AMLODIPINE BESYLATE 5 MG TAB PO SCH (09:28)
[2019-11-11] MEDS: ATORVASTATIN 10 MG TAB PO SCH (09:28)
[2019-11-11] MEDS: MULTIVITAMIN TAB PO SCH (09:32)
== END 2019-11-11 11:36 | disposition home health service (06) | DRG 470 ==
LOC: ASU 05:19 → 3E 08:46